=== PATIENT | male | born 1980 | race Hispanic/Latino ===

== ENCOUNTER 2020-11-01 16:59 | Emergency (ER) | payer SELFPAY ==
--- NOTE | ~2020-11-01 | CT_ITS ---
EXAMINATION: CT brain wo con DATE: 11/01/2020 19:15 INDICATION: Headache TECHNIQUE: Computed tomography (CT) of the head was performed without intravenous contrast. Sagittal and coronal reconstructions were performed. The mA was adjusted according to patient size. Iterative reconstruction technique was employed. The dose-length product was 605.33 mGy-cm. COMPARISON: None FINDINGS: No acute intracranial hemorrhage, acute infarction or abnormal extra axial fluid collection. Ventricl es are normal and symmetric. No mass/mass effect. Mild mucosal thickening at the right sphenoid sinus . The orbits and mastoid air cells are normal. IMPRESSION: 1. Normal brain. No acute intracranial process. Reviewed, dictated and finalized at location A.
[2020-11-01 17:26] VITALS: BP 124/82; PULSE 73; RESP 16; TEMP 36.5; O2SAT 100
[2020-11-01] MEDS: ACETAMINOPHEN 500 MG TABLET 1000 MG PO (19:07)
--- NOTE | 2020-11-01 19:17 | ECG_ITS ---
Measurements Intervals [place] Rate: 59 P: 34 NE: 158 QRS: 98 QRSD: 84 T: 54 QT: 368 QTc: 365 Interpretive Statements SINUS BRADYCARDIA RIGHT AXIS DEVIATION INCOMPLETE RIGHT BUNDLE BRANCH BLOCK BORDERLINE ECG Electronically Signed On 11-01-2020 19:59:05 CDT by Perry Babcock D.O.
[2020-11-01 19:32] VITALS: BP 121/80; PULSE 62
[2020-11-01 19:33] VITALS: BP 118/87; BP 129/86; PULSE 60; PULSE 65
[2020-11-01 19:53] LABS: Basophils Percent Auto 0.4 % (0.2-1.2); Eosinophils Absolute Auto 0.2 K/mm3 (0-0.3); Eosinophils Percent Auto 2.1 % (0-4.4); Hematocrit 44.8 % (42.0-52.0); Hemoglobin 15.5 g/dL (14.0-18.0); Immature Granulocyte Absolute 0.04 K/mm3 (0.00-0.031); Immature Granulocyte Percent A 0.5 % (0-0.5); Lymphocytes Absolute Auto 3.17 K/mm3 (0.9-3.2); Lymphocytes Percent Auto 39.6 % (18.3-44.2); Mean Corpuscular HGB Conc 34.6 g/dl (32-36); Mean Corpuscular Volume 86.8 fl (80-100); Mean Platelet Volume 11.8 fl (7.4-10.4); Monocytes Absolute Auto 0.5 K/mm3 (0.1-0.6); Monocytes Percent Auto 6.6 % (2.6-8.5); Neutrophils Absolute Auto 4.1 K/mm3 (1.3-6.7); Neutrophils Percent Auto 50.8 % (45.5-73.1); Platelet Count Result 191 k/mm3 (150-375); Red Blood Count 5.16 M/mm3 (4.6-6.20); Red Cell Distribution Width 12.8 % (11.5-14.5)
[2020-11-01 20:06] LABS: Alanine Aminotransferase 44 U/L (4-50); Albumin Level 4.3 g/dL (3.5-5.1); Alkaline Phosphatase 78 U/L (38-126); Anion Gap 8 mmol/L (8-16); Aspartate Amino Transferase 40 U/L (17-59); Bilirubin,Total 0.9 mg/dL (0.2-1.3); Blood Urea Nitrogen 10 mg/dL (9-20); Calcium 8.8 mg/dL (8.4-10.2); Carbon Dioxide 27 mmol/L (22-30); Chloride 106 mmol/L (98-107); Estimated CRCL calculation 90 ml/min; Estimated Glomerular Filt Rate > 60; Glucose 104 mg/dL (75-110); Potassium 3.8 mmol/L (3.4-5.0); Sodium 141 mmol/L (137-145)
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
[2020-11-01 20:17] LABS: Troponin I < 0.012 ng/mL (0.000-0.034)
[2020-11-01 20:53] VITALS: BP 121/78; PULSE 60; RESP 14; O2SAT 99
== END 2020-11-01 20:53 | disposition home or self-care (01) ==
PROVIDERS: Emergency Provider Emergency Medicine
DX: R51.9 Headache, unspecified (principal); R00.1 Bradycardia, unspecified; I45.10 Unspecified right bundle-branch block
CPT/HCPCS: 36415; 70450; 80053; 84484; 85025; 93005; 99284; A9270

== ENCOUNTER 2025-05-01 09:47 | Emergency (ER) | payer SELFPAY ==
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
[2025-05-01 09:45] VITALS: BP 154/96; PULSE 94; RESP 20; TEMP 36.6; O2SAT 98
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
[2025-05-01] MEDS: ACETAMINOPHEN 500 MG TABLET 1000 MG PO (11:45)
[2025-05-01 12:38] VITALS: BP 107/95; PULSE 83; RESP 20; O2SAT 100
--- NOTE | 2025-05-01 12:38 | PC.NURSE ---
Ccollar removed by EDP
[2025-05-01] MEDS: TETANUS,DIPHTHERIA,AC PERTUSSIS ADULT (0.5 ML) BOOSTRIX IM (13:59)
[2025-05-01 14:00] VITALS: BP 124/75; PULSE 85; RESP 20; O2SAT 99
[2025-05-01 14:54] VITALS: BP 120/87; PULSE 82; RESP 17; O2SAT 100
== END 2025-05-01 15:06 | disposition home or self-care (01) ==
DX: S01.111A Laceration without foreign body of right eyelid and periocular area, initial encounter (principal); M79.642 Pain in left hand; S40.812A Abrasion of left upper arm, initial encounter; S40.811A Abrasion of right upper arm, initial encounter; S60.416A Abrasion of right little finger, initial encounter; Y00.XXXA Assault by blunt object, initial encounter; Z23 Encounter for immunization
CPT/HCPCS: 12013; 70450; 70486; 72125; 73110; 73130; 90471; 90715; 99284; A9270; L0140

== ENCOUNTER 2025-05-07 13:51 | Emergency (ER) | payer SELFPAY ==
[2025-05-07 13:54] VITALS: BP 130/90; PULSE 63; RESP 18; TEMP 36.7; O2SAT 99
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
[2025-05-07] MEDS: ACETAMINOPHEN 500 MG TABLET 1000 MG PO (14:39)
== END 2025-05-07 15:11 | disposition home or self-care (01) ==
LOC: ANHED 14:31
DX: S01.111D Laceration without foreign body of right eyelid and periocular area, subsequent encounter (principal); Y09 Assault by unspecified means
CPT/HCPCS: 15853; 99282; A9270